=== PATIENT | male | born 1990 | race Two or more races ===

== ENCOUNTER 2024-04-30 08:42 | Emergency (ER) | payer MEDICAID, OTHER ==
[~2024-04-30] VITALS: Ht 175.3 cm; Wt 71.3 kg
[2024-04-30 08:54] VITALS: TEMP 98.9
[2024-04-30 08:57] VITALS: BP 158/103; PULSE 109; RESP 18; O2SAT 96
[2024-04-30] MEDS ORDERED: DOCU-94 PO (09:25)
[2024-04-30] MEDS ORDERED: HYDR25SU21 PR (09:25)
--- NOTE | 2024-04-30 09:27 | ED.PDOC ---
History of Present Illness HPI Comments A 34 YEAR OLD MALE PRESENTS TO THE ED WITH COMPLAINT OF RECTAL PAIN AND CONSTIPATION. PATIENT STATES HE HAS BEEN EXPERIENCING RECTAL PAIN THAT STARTED TODAY AND NOTES HE NOTICED A SMALL AMOUNT OF BLOOD WHEN WIPING. PATIENT REPORTS HE HAS A HISTORY OF EXTERNAL HEMORRHOIDS. PATIENT ALSO NOTES HE HAS BEEN EXPER IENCING CONSTIPATION FOR THE LAST 2 DAYS. PATIENT DENIES FEVER, CHILLS, SHORTNESS OF BREATH, CHEST PAIN, ABDOMINAL PAIN, NAUSEA, VOMITING, HEADACHE, OR OTHER COMPLAINTS. NO OTHER SYMPTOMS OR MODIFYING FACTORS AT THIS TIME. PATIENT IS ALERT, ORIENTED X 4, AND HAS STEADY GAIT. Chief Complaint: Rectal Pain Time Seen by MD: 08:59 Reviewed Notes: Nurses Notes, Medications, Allergies Allergies: Coded Allergies: NO KNOWN ALLERGIES (Unverified , 04/30/24) Home Meds Active Scripts Docusate Sodium (Colace) 100 Mg Cap, 1 CAP PO BID, #30 CAP Prov:KAYLIN RODRIGUEZ 04/30/24 Hydrocortisone Acetate (Anusol-Hc) 25 Mg Sup, 1 SUPP LA BID, #20 SUPP Prov:KAYLIN RODRIGUEZ 04/30/24 Information Source: Patient Mode of Arrival: Ambulatory Severity: Moderate Timing: Days Duration: Since onset, Days Prehospital treatment: None Medication Refill: For: Other (EXTERNAL HEMORRHOIDS AND CONSTIPATION) Past Medical History PAST MEDICAL HISTORY: Denies Surgical History: Denies all surgeries Family History Family History: Reviewed,noncontributory to illness Social History Smoker: Non-Smoker Alcohol: Denies ETOH Use Drugs: Denies Drug Use Lives In: Home Constitutional: denies: chills, diaphoresis, fatigue, fever, malaise, sweats, weakness, others EENTM: denies: blurred vision, double vision, ear bleeding, ear discharge, ear drainage, ear pain, ear ringing, eye pain, eye redness, hearing loss, mouth pain, mouth swelling, nasal discharge, nose bleeding, nose congestion, nose pain, photophobia, tearing, throat pain, throat swelling, voice changes, others Respiratory: denies: cough, hemoptysis, orthopnea, SOB at rest, shortness of breath, SOB with excertion, stridor, wheezing, others Cardiovascular: denies: chest pain, dizzy spells, diaphoresis, Dyspnea on exertion, edema, irregular heart beat, left arm pain, lightheadedness, palpitations, PND, syncope, others Gastrointestinal: reports: constipated, rectal pain; denies: abdomen distended, abdominal pain, blood streaked bowels, diarrhea, dysphagia, difficulty swallowing, hematemesis, melena, nausea, poor appetite, poor fluid intake, rectal bleeding, vomiting, others Genitourinary: reports: pain (RECTAL ); denies: burning, dysuria, flank pain, frequency, hematuria, incontinence, penile discharge, penile sore, testicle pain, testicle swelling, urgency, others Neurological: denies: dizziness, fainting, headache, left sided numbness, left sided weakness, numbness, paresthesia, pre-existing deficit, right sided numbness, right sided weakness, seizure, speech problems, tingling, tremors, weakness, others Musculoskeletal: denies: back pain, gout, joint pain, joint swelling, muscle pain, muscle stiffness, neck pain, others Integumetry: denies: bruises, change in color, change in hair/nails, dryness, laceration, lesions, lumps, rash, wounds, others Allergic/Immunocompromised: denies: Difficulty Healing, Frequent Infections, Hives, Itching, others Hematologic/Lymphatic: denies: anemia, blood clots, easy bleeding, easy bruising, swollen glands, others Endocrine: denies: excessive hunger, excessive sweating, excessive thirst, excessive urination, flushing, intolerance to cold, intolerance to heat, unexpl ained weight gain, unexplained weight loss, others Psychiatric: denies: anxiety, bipolar disorder, depression, hopeless, panic disorder, schizophrenia, sleepless, suicidal, others All Other Systems: Reviewed and Negative Physical Exam General Appearance: No Apparent Distress, Normal HEENT: Normal ENT Inspection, PERRL/EOMI, Pharynx Normal, TMs Normal Neck: Full Range of Motion, Non-Tender, Normal, Normal Inspection Respiratory: Chest Non-Tender, Lungs Clear, No Accessory Muscle Use, No Respi ratory Distress, Normal Breath Sounds Cardiovascular: No Edema, No JVD, No Murmur, No Gallop, Normal Peripheral Pulses, Regular Rate/Rhythm Breast Exam: Deferred Gastrointestinal: No Organomegaly, Non Tender, No Pulsatile Mass, Normal Bowel Sounds, Soft Genitalia: Deferred Pelvic: Deferred Rectal: Hemorrhoids (EXTERNAL HEMORRHOID, NO RECTAL BLEEDING AND BLOOD CLOTS. ), Normal rectal tone (WITH EXTERNAL HEMORRHOID ) Extremities: No calf tenderness, Normal capillary refill, Normal inspection, Normal range of motion, Non-tender, No pedal edema Musculoskeletal : Apperance: Normal Neurologic: Alert, information technology intern II-XII nml as Tested, No Motor Deficits, Normal Affect, Normal Mood, No Sensory Deficits Cerebellar Function: Normal Reflexes: Normal Skin: Dry, Normal Color, Warm Peripheral Pulses: 2+ carotid (R), 2+ carotid (L), 2+ dorsalis pedis (R), 2+ dorsalis pedis (L) Lymphatic: No Adenopathy Was a procedure done? Was a procedure done?: No Differential Dx Considerations may include: EXTERNAL/INTERNAL HEMORRHOIDS, CONSTIPATION, ANAL FISSURE, SOFT TISSUE INFECTION X-Ray, Labs, Meds, VS Vital Signs Date Time Temp Pulse Resp B/P (MAP) Pulse Ox O2 Delivery O2 Flow Rate FiO2 04/30/24 08:57 98.9 109 18 158/103 (121) 96 Time of 1ST Reevaluation: 09:37 Reevaluation 1ST: Improved Patient Education/Counseling: Diagnosis, Treatment, Need For Follow Up Family Education/Counseling: Diagnosis, Treatment, Need For Follow Up Medical Screening: No EMC Exist At This Time Departure 1 Departure Time of Disposition: 09:40 Impression: Primary Impression: External hemorrhoid Additional Impression: Acute constipation Disposition: HOME / SELF CARE / HOMELESS Condition: Stable Additional Instructions: FOLLOW-UP WITH PCP IN 1 TO 2 DAYS. TAKE MEDICATIONS PRESCRIBED. RETURN TO ED FOR ANY NEW OR WORSENING SYMPTOMS. e-Prescriptions Docusate Sodium (Colace) 100 Mg Cap 1 CAP PO BID, #30 CAP Prov: KAYLIN RODRIGUEZ 04/30/24 Hydrocortisone Acetate (Anusol-Hc) 25 Mg Sup 1 SUPP LA BID, #20 SUPP Prov: KAYLIN RODRIGUEZ 04/30/24 Discharged With: Self Critical Care Note Critical Care Time?: No Stability Stability form required: No I personally scribed for KAYLIN RODRIGUEZ ([email or web address]) on 04/30/24 at 09:27. Electronically submitted by German Lucas ([email or web address]). KAYLIN RODRIGUEZ Apr 30, 2024 09:27
[2024-05-01] MEDS ORDERED: HYDR-4902 PO (01:11)
[2024-05-01] MEDS ORDERED: PHENSUP38 PR (01:11)
== END 2024-04-30 09:54 | disposition home or self-care (01) ==
LOC: ER 08:42
DX: K64.4 Residual hemorrhoidal skin tags (principal); K59.09 Other constipation; Z79.899 Other long term (current) drug therapy

== ENCOUNTER 2024-04-30 23:13 | Emergency (ER) | payer MEDICAID ==
[~2024-04-30] VITALS: Ht 177.8 cm; Wt 70.8 kg
[~2024-04-30 23:13] MED LIST: DOCU-94 PO; HYDR25SU21 PR
[2024-05-01] MEDS: HYDROcodone-ACET 10/325MG TAB PO ONE (00:49)
[2024-05-01 00:50] VITALS: BP 147/105; PULSE 93; RESP 16; TEMP 98; O2SAT 99
[2024-05-01] MEDS ORDERED: HYDR-4902 PO (01:11)
[2024-05-01] MEDS ORDERED: PHENSUP38 PR (01:11)
== END 2024-05-01 01:29 | disposition home or self-care (01) ==
LOC: ER 23:13
DX: K64.4 Residual hemorrhoidal skin tags (principal)